=== PATIENT | female | born 1990 | race Caucasian/White ===

== ENCOUNTER 2017-05-03 08:34 | Emergency (ER) | payer MEDICAID ==
[~2017-05-03] VITALS: Ht 165.1 cm; Wt 135.6 kg
[2017-05-03 08:43] VITALS: Ht 165.1 cm; Wt 135.6 kg
[2017-05-03 12:12] VITALS: BP 141/93
== END 2017-05-03 12:10 | disposition home or self-care (01) ==
LOC: ED 08:34
DX: G44.209 Tension-type headache, unspecified, not intractable (principal); J45.909 Unspecified asthma, uncomplicated
CPT/HCPCS: 20552; J1885; J2001

== ENCOUNTER 2017-11-03 10:39 | Emergency (ER) | payer SELFPAY ==
[~2017-11-03] VITALS: Ht 162.6 cm; Wt 135.6 kg
[2017-11-03 10:48] VITALS: Ht 162.6 cm; Wt 135.6 kg
[2017-11-03 13:06] VITALS: BP 135/87
== END 2017-11-03 13:06 | disposition home or self-care (01) ==
LOC: ED 10:39
DX: J06.9 Acute upper respiratory infection, unspecified (principal); J45.909 Unspecified asthma, uncomplicated
CPT/HCPCS: J7613; J7644

== ENCOUNTER 2018-10-27 17:15 | Emergency (ER) | payer MEDICAID ==
[~2018-10-27] VITALS: Ht 162.6 cm; Wt 138.3 kg
[2018-10-27 17:27] VITALS: BP 130/81; Ht 162.6 cm; Wt 138.3 kg
== END 2018-10-27 19:30 | disposition home or self-care (01) ==
LOC: ED 17:15
DX: J06.9 Acute upper respiratory infection, unspecified (principal); J45.909 Unspecified asthma, uncomplicated
CPT/HCPCS: J7613